=== PATIENT | female | born 1990 | race Hispanic/Latino ===

== ENCOUNTER 2024-11-09 15:26 | Emergency (ER) | payer BC ==
[~2024-11-09] VITALS: Ht 172.7 cm; Wt 69.9 kg
[2024-11-09 17:25] LABS: BASOPHILS # (AUTO) 0.07 K/uL (0.00-0.20); EOSINOPHILS # (AUTO) 0.12 K/uL (0.00-0.70); EOSINOPHILS % (AUTO) 1.7 % (0.0-8.0); HEMATOCRIT 39.4 % (36-48); IMMATURE GRANULOCYTE ABSOLUTE 0.01 K/uL (0-1); LYMPHOCYTES # (AUTO) 1.9 K/uL (1.0-4.8); LYMPHOCYTES % (AUTO) 26.9 % (21.0-51.0); MEAN CORPUSCULAR HEMOGLOBIN 29.6 pg (27.0-33.0); MEAN CORPUSCULAR HGB CONC 33.2 g/dL (32.0-36.0); MEAN CORPUSCULAR VOLUME 89.1 fL (79-99); MONOCYTES # (AUTO) 0.5 K/uL (0.1-1.0); MONOCYTES % (AUTO) 6.7 % (3.0-13.0); NEUTROPHILS # (AUTO) 4.4 K/uL (1.8-7.7); NEUTROPHILS % (AUTO) 63.6 % (40.0-77.0); PLATELET COUNT (AUTO) 249 K/uL (130-400); RED BLOOD CELL COUNT(AUTO) 4.42 MIL/uL (4.00-5.50); RED CELL DISTRIBUTION WIDTH 13.7 % (11.0-15.5); WHITE BLOOD COUNT (AUTO) 6.9 K/uL (4.8-10.8)
[2024-11-09 17:36] LABS: CREATININE 0.6 mg/dL (0.5-1.0); POTASSIUM 3.6 mmol/L (3.5-5.1)
--- NOTE | 2024-11-09 18:25 | HMCIMG ---
ULTRASOUND OF THE PELVIS ULTRASOUND ABD VASCULAR LIMITED INDICATION: Vaginal bleeding COMPARISONS: None TECHNIQUE: Transabdominal real-time sonographic images were acquired earlier, and subsequently made available for review. FINDINGS: The uterus measures 13.4 x 7.2 x 10.4 cm. The uterus is normal in echotexture and contour. Single live intrauterine gestation corresponding to sonographic gestational age of 8 weeks 6 days +/- 5 days based on crown-rump length of 2.2 cm. heart rate was not well-demonstrated. Yolk sac was not well-demonstrated. The right ovary measures 2.8 x 2.1 x 2.4 cm. 1.6 cm right ovarian corpus luteal cyst demonstrated. The right ovary is otherwise normal in size, shape and echogenicity. No right adnexal masses demonstrated. Color Doppler flow is normal throughout the right ovary. Spectral Doppler analysis demonstrates a normal waveform pattern. The left ovary is obscured by overlying bowel gas. No free pelvic fluid demonstrated. IMPRESSION: Findings suggesting demise. Correlation with beta-hCG levels and short-term follow-up sonographic imaging is recommended.
[2024-11-09 19:04] LABS: APPEARANCE,URINE CLEAR (CLEAR); BILIRUBIN,URINE NEGATIVE (NEGATIVE); COLOR,URINE LIGHT-YELLOW (YELLOW); GLUCOSE, URINE (UA) NEGATIVE (NEGATIVE); KETONES,URINE 20 mg/dL (NEGATIVE); LEUKOCYTE ESTERASE ,URINE NEGATIVE Leu/uL (NEGATIVE); NITRATE,URINE NEGATIVE (NEGATIVE); OCCULT BLOOD,URINE SMALL (NEGATIVE); PROTEIN,URINE NEGATIVE (NEGATIVE); UROBILINOGEN,URINE 0.2 mg/dL (0.2-1.0)
[2024-11-09 19:15] LABS: MUCUS,URINE RARE LPF (None Seen); SQUAMOUS EPITHELIAL CELL,UR RARE /HPF (0-2); WBC,URINE 0-1 /HPF (0-1)
--- NOTE | 2024-11-09 19:39 | ERN ---
General Chief Complaint: Vaginal Bleeding Stated Complaint: AND SPOTTING Time Seen by MD: 15:26 Time Seen by Midlevel: 15:26 Source: patient History of Present Illness Initial Comments 34 y/o female presents to the ED due to vaginal bleeding onset today. Patient reports she is currently 12 weeks , A0, does not have an OBGYN and she sees a credit product analyst. Patient describes the bleeding initiated as a vaginal spotting with brownish discharge and is now getting brighter. Denies abdominal pain, nausea, vomiting, fever or further associated symptoms. Denies significant past medical history. Allergies: Coded Allergies: No Known Allergies (Unverified Allergy, Unknown, 11/09/24) Past Medical History Past Medical History: No Pertinent History Past Surgical History: Other Female( History) LMP: Aug 13, 2024 : 2 Para: 1 Aborts: 0 ROS Dictation Constitutional: Negative for fever,chills, and weight loss Eyes: Negative for injury, pain,redness, and discharge ENT: Negative for injury,pain or swelling Cardiovascular: Negative for chest pain, palpitations, and edema Respiratory: Negative for shortness of breath, cough, and wheezing, Abdomen/GI: Negative for abdominal pain, nausea, vomiting, diarrhea, and constipation Back: Negative for injury and pain : Positive for vaginal bleeding Negative for painful urination, or discharge MS/Extremity: Negative for injury and deformity Skin: Negative for rash, and discoloration Neuro: Negative for headache, weakness, numbness, tingling, and seizure Psych: Negative for suicide ideation, homicidal ideation, and hallucinations Physical Exam Physical Exam Dictation General: awake, alert, no acute distress Head/Face: Normocephalic, atraumatic Eyes: PERRL, EOMI, normal conjunctiva ENT: oral cavity clear, oral mucosa moist Neck: Supple, normal range of motion Cardiovascular: RRR, normal S1/S2 Respiratory: CTAB, no respiratory distress, Abdomen: Soft, non-tender, non-distended, no guarding or rebound. Skin: Warm, dry, normal turgor, no rash MS/Extremity: Pulses equal, no cyanosis, neurovascular intact, FROM Neuro: COAx4, GCS 15, strength 5/5, CN 2-12 intact, normal cerebellar exam, normal gait Psych: Normal behavior, mood, and affect normal Results Laboratory and Microbiology Lab and Micro Result Laboratory Tests Test 11/09/24 17:19 11/09/24 19:00 White Blood Count 6.9 K/uL (4.8-10.8) Red Blood Count 4.42 MIL/uL (4.00-5.50) Hemoglobin 13.1 g/dL (12.0-16.0) Hematocrit 39.4 % (36-48) Mean Corpuscular Volume 89.1 fL (79-99) Mean Corpuscular Hemoglobin 29.6 pg (27.0-33.0) Mean Corpuscular Hemoglobin Concent 33.2 g/dL (32.0-36.0) Red Cell Distribution Width 13.7 % (11.0-15.5) Platelet Count 249 K/uL (130-400) Mean Platelet Volume 10.8 fL (7.5-10.5) H Immature Granulocyte % (Auto) 0.1 % (0-1) Neutrophils (%) (Auto) 63.6 % (40.0-77.0) Lymphocytes (%) (Auto) 26.9 % (21.0-51.0) Monocytes (%) (Auto) 6.7 % (3.0-13.0) Eosinophils (%) (Auto) 1.7 % (0.0-8.0) Basophils (%) (Auto) 1.0 % (0.0-5.0) Neutrophils # (Auto) 4.4 K/uL (1.8-7.7) Lymphocytes # (Auto) 1.9 K/uL (1.0-4.8) Monocytes # (Auto) 0.5 K/uL (0.1-1.0) Eosinophils # (Auto) 0.12 K/uL (0.00-0.70) Basophils # (Auto) 0.07 K/uL (0.00-0.20) Absolute Immature Granulocyte (auto 0.01 K/uL (0-1) Nucleated Red Blood Cells 0.0 % (0.0-0.19) Sodium Level 134 mmol/L (136-145) L Potassium Level 3.6 mmol/L (3.5-5.1) Chloride Level 98 mmol/L (101-111) L Carbon Dioxide Level 30 mmol/L (21-32) Blood Urea Nitrogen 12 mg/dL (7-18) Creatinine 0.6 mg/dL (0.5-1.0) Glomerular Filtration Rate Calc 121 mL/min (>90) Random Glucose 84 mg/dL (70-105) Total Calcium 9.4 mg/dL (8.5-10.1) Human Chorionic Gonadotropin, Quant 4890 mIU/mL (0-5) H Urine Color LIGHT-YELLOW (YELLOW) Urine Appearance CLEAR (CLEAR) Urine pH 5.0 (5.0-8.0) Urine Specific [place] 1.013 (1.001-1.031) Urine Protein NEGATIVE mg/dL (NEGATIVE) Urine Glucose (UA) NEGATIVE mg/dL (NEGATIVE) Urine Ketones 20 mg/dL (NEGATIVE) H Urine Occult Blood SMALL (NEGATIVE) H Urine Nitrate NEGATIVE (NEGATIVE) Urine Bilirubin NEGATIVE mg/dL (NEGATIVE) Urine Urobilinogen 0.2 mg/dL (0.2-1.0) Urine Leukocyte Esterase NEGATIVE Stacey/uL Urine RBC 11-25 /HPF (0-1) H Urine WBC 0-1 /HPF (0-1) Urine Squamous Epithelial Cells RARE /HPF (0-2) Urine Bacteria None /HPF (None Seen) Labs Reviewed?: Yes EKG/XRAY/US/CT/MRI Ultrasound Comment REASON: Vaginal Bleed ORDERING PHYSICIAN: RIKKI MAYERS PROCEDURE: OB <14 - US OB <14 WEEKS ULTRASOUND OF THE PELVIS ULTRASOUND ABD VASCULAR LIMITED INDICATION: Vaginal bleeding COMPARISONS: None TECHNIQUE: Transabdominal real-time sonographic images were acquired earlier, and subsequently made available for review. FINDINGS: The uterus measures 13.4 x 7.2 x 10.4 cm. The uterus is normal in echotexture and contour. Single live intrauterine gestation corresponding to sonographic gestational age of 8 weeks 6 days +/- 5 days based on crown-rump length of 2.2 cm. heart rate was not well-demonstrated. Yolk sac was not well-demonstrated. The right ovary measures 2.8 x 2.1 x 2.4 cm. 1.6 cm right ovarian corpus luteal cyst demonstrated. The right ovary is otherwise normal in size, shape and echogenicity. No right adnexal masses demonstrated. Color Doppler flow is normal throughout the right ovary. Spectral Doppler analysis demonstrates a normal waveform pattern. The left ovary is obscured by overlying bowel gas. No free pelvic fluid demonstrated. IMPRESSION: Findings suggesting demise. Correlation with beta-hCG levels and short-term follow-up sonographic imaging is recommended. DICTATED BY: NONA CAMEJO MD DATE: 11/09/241820 [facility] MDM: Differential diagnosis: Early bleeding, UTI, miscarriage Rationale: 34 y/o female presents to the ED due to vaginal bleeding onset today. Patient reports she is currently 12 weeks , A0, does not have an OBGYN and she sees a credit product analyst. Patient describes the bleeding initiated as a vaginal spotting with brownish discharge and is now getting brighter. Denies abdominal pain, nausea, vomiting, fever or further associated symptoms. Denies significant past medical history. Per physical examination patient is in no acute distress. Labs obtained are nonspecific, UA negative for urinary tract infection. HCG of 4890. Ultrasound indicates a single intrauterine gestation measuring eight weeks six days, heart rate not found, yolk sac was not demonstrated, findings suggestive of demise. Patient was educated on findings, diagnosis and recommended a hCG and ultrasound follow up. Advised to follow up with OBGYN. Return to the emergency department if any worsening symptoms. Patient verbalized understanding. Patient stable for discharge. There are no social concerns with this patient. I independently interpreted the test that were performed, results were reviewed by me and considered findings on radiology if ordered. Medical management and examination interpretation discussions were had by me with other qualified healthcare professionals as indicated for the patient's care. ED Course Orders Procedure Category Date Status Time Cbc With Differential LAB 11/09/24 Complete 15:31 Basic Metabolic Panel LAB 11/09/24 Complete 15:31 Urinalysis LAB 11/09/24 Complete W/Microscopic 15:31 Hcg,Quantitative LAB 11/09/24 Complete 15:31 Us Ob <14 Weeks US 11/09/24 Resulted 16:32 Vital Signs Date Time Temp Pulse Resp B/P (MAP) Pulse Ox O2 Delivery O2 Flow Rate FiO2 11/09/24 19:55 97.7 86 16 116/56 99 Room Air* 0 11/09/24 19:23 97.7 91 16 119/65 98 Room Air* 0 11/09/24 15:42 97.7 61 20 117/73 99 Room Air 0 DX & DISP Disposition: Discharge Departure Impression: Primary Impression: Miscarriage, threatened, early Condition: Stable Additional Instructions: Discharge home. Rest. Follow up with primary care Dr. in 24 hours. Return to the ER for any acute changes or worsening symptoms. If any medications were prescribed take as directed. Okay to continue home medications unless otherwise discussed during your visit in the emergency room today. Patient was also advised to follow-up with primary care physician in 1 to 2 days for continued monitoring. Referrals: MERYL DESAI MD (PCP) CHAD SUNG MD, JAROD N MD I performed the substantive portion of the visit. I have reviewed and personally made and approve the management plan that is documented in the notes by myself or the ALAN. I acknowledge full responsibility for the patient's management plan. RIKKI MAYERS Nov 09, 2024 19:39
[2024-11-09 19:55] VITALS: BP 116/56; PULSE 86; RESP 16; TEMP 97.7; O2SAT 99
== END 2024-11-09 19:57 | disposition home or self-care (01) ==
LOC: EDH 15:26
DX: O20.0 Threatened abortion (principal); Z3A.08 8 weeks gestation of pregnancy
CPT/HCPCS: 36415; 76801; 80048; 81001; 84702; 85025; 99284